=== PATIENT | male | born 1995 | race Caucasian/White ===

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

== ENCOUNTER → 2018-03-31 | Outpatient (REF) | payer SELFPAY, OTHER | LOC: M LAB REF 19:24 | DX: B27.90 Infectious mononucleosis, unspecified without complication (principal) | CPT/HCPCS: 87081 ==